=== PATIENT | female | born 1935 | race African-American/Black ===

== ENCOUNTER → 2017-03-28 | Outpatient (CLI) | payer OTHER ==
[2017-03-28 18:53] LABS: ALANINE AMINOTRANSFERASE 16 IU/L (0-55); ALBUMIN/GLOBULIN RATIO 0.4 (0.8-2.0); ALKALINE PHOSPHATASE 87 IU/L (40-150); ANION GAP 14.3 mmol/L (8-16); BLOOD UREA NITROGEN 38 mg/dL (7-26); BUN/CREATININE RATIO 51 (6-25); CARBON DIOXIDE 32 mmol/L (22-29); CHLORIDE 96 mmol/L (98-107); CREATININE, SERUM 0.74 mg/dL (0.57-1.11); EST GLOMERULAR FILTRATION RATE > 60 ML/MIN (60-); GLUCOSE 110 mg/dL (74-118); POTASSIUM 4.3 mmol/L (3.5-5.1); SODIUM 138 mmol/L (136-145)
[2017-03-28 19:02] LABS: BASOPHILS % 0.3 % (0.0-1.0); EOSINOPHILS % 0.1 % (0.0-6.0); HEMATOCRIT 24.6 % (34.2-44.1); LYMPHOCYTES # (AUTO) 1.9 (1.0-3.2); LYMPHOCYTES % 11.8 % (18.0-39.1); MEAN CORPUSCULAR HEMOGLOBIN 27.9 pg (28-32); MEAN CORPUSCULAR HGB CONC 30.9 g/dL (31-35); MEAN CORPUSCULAR VOLUME 90.4 fL (81-99); MONOCYTES % 6.1 % (4.4-11.3); NEUTROPHILS # (AUTO) 12.7 (2.1-6.9); NEUTROPHILS % 80.3 % (38.7-80.0); PLATELET COUNT 421 x10e3/uL (140-360); RED BLOOD COUNT 2.72 x10e6/uL (3.6-5.1); RED CELL DISTRIBUTION WIDTH 15.7 % (11.7-14.4)
[2017-03-28 19:05] LABS: HEMOGLOBIN 7.6 g/dL (12.0-16.0)
== END ==
LOC: NPA 11:30
DX: Z02.89 Encounter for other administrative examinations (principal)
CPT/HCPCS: 36415; 80053; 84134; 85025

== ENCOUNTER → 2017-04-07 | Outpatient (CLI) | payer OTHER ==
[~2017-04-07] MED LIST: ACETAMINOPHEN650 MG RC; AMIODARONE HCL200 MG PEG; APIXABAN; APIXABAN 5 MG PEG; ARTIFICIAL TEAR15 ML OP; CEFEPIME-D1 GM/50 ML IVP; CLONIDINE HCL0.1 MG PEG; CYMBALTA30 MG PEG; FUROSEMIDE40 MG PEG; GLUCAGON EMERGEN1 MG IM; LACTULOSE20 GM/30 M PEG; MULTIVITAMINS1 EAC6 PEG; NOVOLOG100 UNIT/1; POTASSIUM CHLO10 ME1 PEG; TYLENOL WITH C1 EACH PEG; VANCOMYCIN1 GM/250 M IV; ZOFRAN8 MG PEG
== END ==
LOC: NPA 12:30
PROVIDERS: ATTEND Internal Medicine
DX: Z02.9 Encounter for administrative examinations, unspecified (principal)
CPT/HCPCS: 36415

== ENCOUNTER 2017-04-10 19:42 | Inpatient (IN) | payer MEDICARE ==
[~2017-04-10] VITALS: Ht 172.7 cm; Wt 78.5 kg
[2017-04-10] MEDS ORDERED: PANTOPRAZOLE 40 MG 10ML VIAL IV STA (20:02)
[2017-04-10 20:25] LABS: BASOPHILS % 0.3 % (0.0-1.0); EOSINOPHILS % 0.3 % (0.0-6.0); HEMATOCRIT 25.7 % (34.2-44.1); LYMPHOCYTES # (AUTO) 1.4 (1.0-3.2); LYMPHOCYTES % 11.3 % (18.0-39.1); MEAN CORPUSCULAR HEMOGLOBIN 27.4 pg (28-32); MEAN CORPUSCULAR HGB CONC 30.7 g/dL (31-35); MEAN CORPUSCULAR VOLUME 89.2 fL (81-99); MONOCYTES # (AUTO) 0.6 (0.2-0.8); MONOCYTES % 5.1 % (4.4-11.3); NEUTROPHILS # (AUTO) 9.9 (2.1-6.9); NEUTROPHILS % 82.7 % (38.7-80.0); PLATELET COUNT 346 x10e3/uL (140-360); RED BLOOD COUNT 2.88 x10e6/uL (3.6-5.1); RED CELL DISTRIBUTION WIDTH 16.9 % (11.7-14.4)
[2017-04-10 20:28] LABS: HEMOGLOBIN 7.9 g/dL (12.0-16.0)
[2017-04-10 20:31] LABS: BILIRUBIN,URINE NEGATIVE (NEGATIVE); COLOR,URINE YELLOW (YELLOW); KETONES,URINE NEGATIVE (NEGATIVE); LEUKOCYTE ESTERASE ,URINE NEGATIVE (NEGATIVE); NITRITE,URINE NEGATIVE (NEGATIVE); PROTEIN,URINE DIPSTICK NEGATIVE (NEGATIVE); URINE UROBILINOGEN 0.2 mg/dL (0.2 - 1)
[2017-04-10 20:33] LABS: CLARITY,URINE CLEAR (CLEAR)
[2017-04-10 20:35] LABS: INR 1.61
[2017-04-10 20:36] LABS: PARTIAL THROMBOPLASTIN TIME 34.6 seconds (23.8-35.5)
[2017-04-10 20:45] LABS: ALANINE AMINOTRANSFERASE 15 IU/L (0-55); ALBUMIN 2.5 g/dL (3.5-5.0); ALBUMIN/GLOBULIN RATIO 0.5 (0.8-2.0); ALKALINE PHOSPHATASE 66 IU/L (40-150); ANION GAP 12.3 mmol/L (8-16); BACTERIA,URINE MANY /HPF; BLOOD UREA NITROGEN 28 mg/dL (7-26); BUN/CREATININE RATIO 47 (6-25); CALCIUM 8.9 mg/dL (8.4-10.2); CARBON DIOXIDE 32 mmol/L (22-29); CHLORIDE 93 mmol/L (98-107); CREATINE KINASE 22 IU/L (29-168); CREATININE, SERUM 0.59 mg/dL (0.57-1.11); EPITHELIAL CELLS,URINE FEW /LPF; EST GLOMERULAR FILTRATION RATE > 60 ML/MIN (60-); GLUCOSE 118 mg/dL (74-118); POTASSIUM 4.3 mmol/L (3.5-5.1); RBC,URINE 0-5 /HPF (0-5); SODIUM 133 mmol/L (136-145); WBC,URINE (MAN) 0-5 /HPF (0-5)
--- NOTE | 2017-04-10 21:00 | Diagnostic Imaging Report ---
EXAM: CHEST SINGLE (PORTABLE), AP 1 view ORDER DATE: 04/10/2017 7:50 PM Time stamp on exam: 2030 hours INDICATION: Vomiting up blood COMPARISON: None FINDINGS: LINES/TUBES: Tracheostomy tube. Partially visualized rounded density projects over the stomach, may be gastrostomy tube. LUNGS: Ill-defined opacity in the right upper lung. Bibasilar atelectasis. PLEURA: Questionable small bilateral pleural effusions. HEART AND MEDIASTINUM: Normal size and contour. BONES AND SOFT TISSUES: No acute findings. IMPRESSION: Ill-defined opacity in the right upper lung is difficult to characterize with overlying tubing. Questionable bilateral pleural effusions. An upright PA and lateral view of the chest is recommended when clinically feasible. Signed by: Dr. Shanon Monae M.D. on 04/10/2017 8:56 PM
--- OUTSIDE RECORDS SUMMARY | 2017-04-10 21:48 | XMS REPORT ---
Author Author [facility] Address Unknown Phone Unavailable Care Team Providers Care Branch Administrator Name Role Phone RYAN HAWKINS Unavailable Unavailable Problems This patient has no known problems. Allergies, Adverse Reactions, Alerts This patient has no known allergies or adverse reactions. Medications This patient has no known medications. Results Test Description Test Time Test Comments Text Results Atomic Results Result Comments CHEST SINGLE (PORTABLE) [place] [address] Patient Name: TRISH JAVIER MR #: [id number] : 1935 Age/Sex: 81/F Req #: [id number] Adm Physician: Ordered by: RYAN HAWKINS MD Report #: [id number] Location: ER Room/Bed: Procedure: [id number] DX/CHEST SINGLE (PORTABLE) Exam Date: Exam Time: REPORT STATUS: Signed EXAM: CHEST SINGLE (PORTABLE), AP 1 view ORDER DATE: 04/10/2017 7:50 PM Time stamp on exam: 2030 hours INDICATION : Vomiting up blood COMPARISON: None FINDINGS: LINES/TUBES: Tracheostomy tube. Partially visualized rounded density projects over the stomach, may be gastrostomy tube. LUNGS: Ill-defined opacity in the right upper lung. Bibasilar atelectasis. PLEURA: Questionable small bilateral pleural effusions. HEART AND MEDIASTINUM: Normal size and contour. BONES AND SOFT TISSUES: No acute findings. IMPRESSION: Ill-defined opacity in the right upper lung is difficult to characterize with overlying tubing. Questionable bilateral pleural effusions. An upright PA and lateral view of the chest is recommended when clinically feasible. Signed by : Dr. Michelle Negron M.D. on 04/10/2017 8:56 PM Dictated By: MICHELLE NEGRON MD 54 Transcribed By: MALIK on 04/10/172055 COPY TO: RYAN HAWKINS MD
[2017-04-10] MEDS: AMPICILLIN SOD/SULBACTAM 1.5GM 50 ML IV SCH (22:00)
[2017-04-10] MEDS ORDERED: LACTULOSE20 GM/30 M PEG (22:27)
[2017-04-10] MEDS ORDERED: APIXABAN 5 MG PEG (22:27)
[2017-04-10] MEDS ORDERED: GLUCAGON EMERGEN1 MG IM (22:27)
[2017-04-10] MEDS ORDERED: CEFEPIME-D1 GM/50 ML IVP (22:27)
[2017-04-10] MEDS ORDERED: AMIODARONE HCL200 MG PEG (22:27)
[2017-04-10] MEDS ORDERED: ACETAMINOPHEN650 MG RC (22:27)
[2017-04-10] MEDS ORDERED: APIXABAN (22:27)
[2017-04-10] MEDS ORDERED: MULTIVITAMINS1 EAC6 PEG (22:27)
[2017-04-10] MEDS ORDERED: ZOFRAN8 MG PEG (22:27)
[2017-04-10] MEDS ORDERED: VANCOMYCIN1 GM/250 M IV (22:27)
[2017-04-10] MEDS ORDERED: CLONIDINE HCL0.1 MG PEG (22:27)
[2017-04-10] MEDS ORDERED: POTASSIUM CHLO10 ME1 PEG (22:27)
[2017-04-10] MEDS ORDERED: TYLENOL WITH C1 EACH PEG (22:27)
[2017-04-10] MEDS ORDERED: ARTIFICIAL TEAR15 ML OP (22:27)
[2017-04-10] MEDS ORDERED: CYMBALTA30 MG PEG (22:27)
[2017-04-10] MEDS ORDERED: FUROSEMIDE40 MG PEG (22:27)
[2017-04-10] MEDS ORDERED: NOVOLOG100 UNIT/1 (22:27)
[2017-04-10] MEDS ORDERED: HYDRALAZINE HCL 20 MG/ML VIAL IV ONE (23:30)
[2017-04-11] VITALS (71 sets, daily range): BP systolic 68–172; BP diastolic 35–107
[2017-04-11] MEDS ORDERED: DEXTROSE 50% SYRINGE 50 ML IV PRN
[2017-04-11 01:40] LABS: AMYLASE 58 U/L (25-125); LIPASE 29 U/L (8-78)
[2017-04-11] MEDS: PANTOPRAZOL 40MG/SOD CHL 0.9% 50 ML IV SCH ×7 (01:59→21:23)
[2017-04-11] MEDS: SODIUM CHLORIDE 0.9% 1000ML 1,000 ML IV SCH ×3 (02:00→17:34)
[2017-04-11] MEDS: MORPHINE SULFATE 2 MG/ML SYR IV PRN ×4 (02:45→20:21)
[2017-04-11] MEDS ORDERED: ONDANSETRON HCL INJ 2 MG/ML VIAL IV PRN (02:45)
[2017-04-11] MEDS: AMPICILLIN SOD/SULBACTAM 1.5GM 50 ML IV SCH ×4 (04:20→20:54)
[2017-04-11] MEDS: LORAZEPAM INJ 2 MG/ML VIAL IV PRN ×3 (05:05→20:55)
[2017-04-11 06:19] LABS: HEMATOCRIT 23.8 % (34.2-44.1)
[2017-04-11 06:30] LABS: HEMOGLOBIN 7.5 g/dL (12.0-16.0)
[2017-04-11] MEDS ORDERED: SODIUM CHLORIDE 0.9% 250ML 250 ML IV ONE (06:45)
[2017-04-11] MEDS: INSULIN REGULAR, HUMAN 100 UNIT/1 ML 3ML VIAL SQ SCH ×4 (07:30→20:58)
[2017-04-11] MEDS ORDERED: ACETAMINOPHEN/CODEINE 300MG - 30MG TAB PEG PRN (08:15)
[2017-04-11] MEDS ORDERED: MULTIVITAMINS/MINERALS TAB PEG SCH (09:00)
[2017-04-11] MEDS: LACTULOSE SYRUP 20 GM/30 ML UDC PEG SCH (09:30)
[2017-04-11] MEDS: AMIODARONE HCL 200 MG TAB PEG SCH (09:30)
[2017-04-11] MEDS: CLONIDINE HCL 0.1 MG TAB PEG SCH ×3 (09:30→20:54)
[2017-04-11] MEDS: MULTIVITAMINS 5 ML LIQUID PEG SCH (09:30)
[2017-04-11] MEDS: IPRATROPIUM BROMIDE 0.02% 2.5 ML NEB NEB SCH ×2 (13:00→19:26)
--- NOTE | 2017-04-11 13:08 | Consultation ---
DATE OF CONSULTATION: April 11, 2017 PULMONARY CONSULTATION Patient transferred from [facility]. She appears chronically ill. There are no old medical records except for medication list provided. She has a history of vomiting coffee-ground emesis. She has a history of chronic aphasia, hypertension, diabetes. She has a trach and a PEG. She is sedated at the moment. HOME MEDICATIONS: Included Tylenol, Codeine, cefepime, clonidine, amiodarone, Cymbalta, Eliquis, lactulose, Lasix, insulin, potassium, and Zoloft. PAST MEDICAL HISTORY: She has a history of dysphagia, anxiety, anemia, old stroke, aphasia, pneumonia related to aspiration, and muscle wasting according to old records. PHYSICAL EXAMINATION GENERAL: This is a frail black female. Tracheostomy is in place. She is sedated. She is ventilated. LUNGS: Bilateral rhonchi. HEART: Regular rhythm. ABDOMEN: PEG is in place. EXTREMITIES: There is a venous ulcer in the left ankle. IMPRESSION 1. Upper gastrointestinal bleed. 2. Old stroke. 3. Peripheral vascular disease. 4. Right upper lobe pneumonia. PLAN: We will await cultures. Continue empiric antibiotic therapy. GI evaluation is in progress. Hemoglobin was 7.5 on admission, white count 11.9. She has been on antibiotics. Temperature is 99.4. She is currently on Unasyn. Consider changing to meropenem if patient becomes febrile. Attempt to obtain old records from [facility]. Hold anticoagulation at this time. Thank you for this kind referral. Job#: [id number] PKU
[2017-04-11 14:52] LABS: HEMATOCRIT 27.5 % (34.2-44.1); HEMOGLOBIN 8.7 g/dL (12.0-16.0)
--- NOTE | 2017-04-11 16:44 | Consultation ---
DATE OF CONSULTATION: WOUND CONSULTATION Thank you, Dr. Roberts, for asking me to see this patient. HISTORY OF PRESENT ILLNESS: An 81-year-old female patient, admitted with gastrointestinal bleeding. Patient has pressure ulcer to the sacrum. She is bedbound. Wound consult was called. PAST MEDICAL HISTORY: Hypertension, diabetes, and dementia. PERSONAL HISTORY: No history of smoking, alcohol, or drugs. MEDICATIONS 1. NovoLog insulin. 2. Potassium. 3. Probiotic. 4. Vancomycin. PHYSICAL EXAMINATION VITAL SIGNS: Blood pressure 118/70, pulse 72. HEENT: Normal. NECK: No JVD. LUNGS: Bilateral air entry normal. ABDOMEN: Soft. Bowel sounds normal. LOWER EXTREMITIES: No edema. SKIN: Coccyx area, patient has stage 2 pressure ulcer with a deep tissue injury, measuring 3 x 3 cm. In the left medial leg, patient has chronic venous ulcer that measures 5 x 2 cm x 0.1 cm, 80% pink, 20% slough. Wound margin attached to base. Periwound is normal limit. ASSESSMENT: Left medial leg chronic venous ulcer. PLAN: Apply Hydrogel, 4 x 4, Kerlix, tape, and Mepilex to the coccyx. Thank you, Dr. Roberts, for asking me to see this patient. I will follow with you during the hospital course. Job#: [id number] RICHARD
[2017-04-11 20:40] LABS: HEMATOCRIT 28.6 % (34.2-44.1); HEMOGLOBIN 9.1 g/dL (12.0-16.0)
[2017-04-11] MEDS: DULOXETINE HCL 30 MG DELAYED RELEASE PEG SCH (20:54)
[2017-04-12] VITALS (99 sets, daily range): BP systolic 69–164; BP diastolic 36–110
[2017-04-12] MEDS: MORPHINE SULFATE 2 MG/ML SYR IV PRN ×4 (00:13→21:14)
[2017-04-12] MEDS: LORAZEPAM INJ 2 MG/ML VIAL IV PRN ×3 (02:45→21:13)
[2017-04-12 02:58] LABS: HEMATOCRIT 28.1 % (34.2-44.1); HEMOGLOBIN 8.9 g/dL (12.0-16.0)
[2017-04-12] MEDS: IPRATROPIUM BROMIDE 0.02% 2.5 ML NEB NEB SCH ×4 (03:00→19:07)
[2017-04-12] MEDS: PANTOPRAZOL 40MG/SOD CHL 0.9% 50 ML IV SCH ×4 (03:00→21:36)
[2017-04-12] MEDS: SODIUM CHLORIDE 0.9% 1000ML 1,000 ML IV SCH ×2 (03:39→15:13)
[2017-04-12] MEDS: AMPICILLIN SOD/SULBACTAM 1.5GM 50 ML IV SCH ×4 (03:39→21:39)
[2017-04-12 06:24] LABS: BASOPHILS % 0.5 % (0.0-1.0); EOSINOPHILS # (AUTO) 0.1 (0.0-0.4); EOSINOPHILS % 2.1 % (0.0-6.0); LYMPHOCYTES # (AUTO) 0.8 (1.0-3.2); LYMPHOCYTES % 12.2 % (18.0-39.1); MEAN CORPUSCULAR HEMOGLOBIN 28.7 pg (28-32); MEAN CORPUSCULAR HGB CONC 30.9 g/dL (31-35); MEAN CORPUSCULAR VOLUME 92.8 fL (81-99); MONOCYTES # (AUTO) 0.5 (0.2-0.8); MONOCYTES % 7.5 % (4.4-11.3); NEUTROPHILS # (AUTO) 4.8 (2.1-6.9); NEUTROPHILS % 77.4 % (38.7-80.0); PLATELET COUNT 256 x10e3/uL (140-360); RED BLOOD COUNT 2.37 x10e6/uL (3.6-5.1); RED CELL DISTRIBUTION WIDTH 16.7 % (11.7-14.4)
[2017-04-12 06:28] LABS: HEMOGLOBIN 6.8 g/dL (12.0-16.0)
--- NOTE | 2017-04-12 06:37 | Diagnostic Imaging Report ---
EXAM: CHEST SINGLE (PORTABLE), AP 1 view ORDER DATE: 04/12/2017 5:19 AM Time stamp on exam: 0558 hours INDICATION: Ventilated COMPARISON: AP view of the chest April 10, 2017 at 2030 hours FINDINGS: LINES/TUBES: Tracheostomy tube LUNGS: Hazy opacities bilateral lungs PLEURA: No effusions or pneumothorax. HEART AND MEDIASTINUM: Normal size and contour. BONES AND SOFT TISSUES: No acute findings. IMPRESSION: Indeterminate opacities bilaterally, not significantly changed. Signed by: Dr. Shanon Monae M.D. on 04/12/2017 6:34 AM
[2017-04-12] MEDS ORDERED: SODIUM CHLORIDE 0.9% 250ML 250 ML IV ONE (06:45)
[2017-04-12 06:52] LABS: ALANINE AMINOTRANSFERASE 10 IU/L (0-55); ALBUMIN 1.9 g/dL (3.5-5.0); ALBUMIN/GLOBULIN RATIO 0.5 (0.8-2.0); ALKALINE PHOSPHATASE 52 IU/L (40-150); ANION GAP 10.3 mmol/L (8-16); BLOOD UREA NITROGEN 17 mg/dL (7-26); BUN/CREATININE RATIO 36 (6-25); CALCIUM 7.1 mg/dL (8.4-10.2); CARBON DIOXIDE 24 mmol/L (22-29); CHLORIDE 107 mmol/L (98-107); CREATININE, SERUM 0.47 mg/dL (0.57-1.11); EST GLOMERULAR FILTRATION RATE > 60 ML/MIN (60-); GLUCOSE 67 mg/dL (74-118); SODIUM 138 mmol/L (136-145)
[2017-04-12 06:56] LABS: INR 1.41
[2017-04-12 06:57] LABS: PARTIAL THROMBOPLASTIN TIME 34.6 seconds (23.8-35.5)
[2017-04-12] MEDS: INSULIN REGULAR, HUMAN 100 UNIT/1 ML 3ML VIAL SQ SCH ×4 (07:30→21:00)
[2017-04-12 07:43] LABS: POTASSIUM 3.3 mmol/L (3.5-5.1)
[2017-04-12] MEDS ORDERED: PHYTONADIONE 10 MG/ML AMP IV ONE (08:15)
[2017-04-12] MEDS: ARTIFICIAL TEARS (OPTH) 15 ML BTL OP PRN (08:37)
[2017-04-12] MEDS ORDERED: PHYTONADIONE 10MG/ML 20 MG in SODIUM CHLORIDE 0.9% 50ML 50 ML IV ONE (09:00)
[2017-04-12] MEDS: CLONIDINE HCL 0.1 MG TAB PEG SCH ×3 (09:05→21:12)
[2017-04-12] MEDS: AMIODARONE HCL 200 MG TAB PEG SCH (09:18)
[2017-04-12] MEDS: MULTIVITAMINS 5 ML LIQUID PEG SCH (09:18)
[2017-04-12] MEDS: LACTULOSE SYRUP 20 GM/30 ML UDC PEG SCH (09:18)
[2017-04-12 14:10] LABS: HEMATOCRIT 30.6 % (34.2-44.1); HEMOGLOBIN 9.5 g/dL (12.0-16.0)
[2017-04-12] MEDS ORDERED: EPINEPHRINE HCL INJ 1 MG/ML AMP ONE (14:39)
--- NOTE | 2017-04-12 16:56 | Operative Report ---
DATE OF PROCEDURE: April 12, 2017 REFERRING PHYSICIAN: Dr. Dalia Wylie. PROCEDURE PERFORMED: Esophagogastroduodenoscopy. INDICATIONS FOR ESOPHAGOGASTRODUODENOSCOPY: Anemia, history of melena. Patient with chronic respiratory failure, on ventilator. MEDICATION: Patient was done under general endotracheal anesthesia. Please see anesthesiologist's note. PROCEDURE: With the patient in the supine position, flexible fiberoptic Olympus gastroscope was introduced into the esophagus under direct visualization without any difficulty. There was some patchy erythema noted in distal esophagus. The scope was then advanced with ease into the stomach and mucosa overlying the antrum and the body revealed some diffuse erythema but no ulcerations, no active bleeding were noted. The bumper of the G-tube was noted to be in good position. Pylorus appeared to be of normal contour and shape. Was intubated with ease and the scope was advanced all the way to the 2nd portion of the duodenum. The scope was then withdrawn slowly. Mucosa overlying the proximal 2nd portion and the duodenal bulb appeared to be within normal limits. The scope was then withdrawn back into the stomach and retroflexed. The mucosa overlying the fundus and cardia appeared to be within normal limits. The scope was then straightened out. Stomach was decompressed. The scope was subsequently withdrawn. Patient tolerated the procedure well. IMPRESSION: 1. Distal esophagitis, mild. 2. Gastritis, mild. 3. Gastric bumper noted to be in good position. PLAN: Findings on esophagogastroduodenoscopy do not explain the patient's anemia or blood loss. Discussed with the patient's daughter, wants her colon evaluated. Will discuss with attending. Job#: [id number] cc:DALIA WYLIE MD
[2017-04-12] MEDS ORDERED: LIDOCAINE HCL 2% LOCAL INJ 5 ML SDV VIAL INJ ONE (18:24)
[2017-04-12] MEDS ORDERED: PROPOFOL IV EMULSION 10 MG/ML 20 ML VIAL ONE (18:24)
[2017-04-12] MEDS ORDERED: EPHEDRINE SULFATE INJ 50 MG/10 ML SYR ONE (18:24)
[2017-04-12] MEDS ORDERED: FENTANYL CITRATE/PF 100MCG/2 ML INJ ONE (18:31)
[2017-04-12] MEDS: DULOXETINE HCL 30 MG DELAYED RELEASE PEG SCH (21:13)
[2017-04-12 21:37] LABS: HEMATOCRIT 35.2 % (34.2-44.1); HEMOGLOBIN 10.9 g/dL (12.0-16.0)
[2017-04-13] VITALS (40 sets, daily range): BP systolic 116–173; BP diastolic 64–112
[2017-04-13] MEDS: SODIUM CHLORIDE 0.9% 1000ML 1,000 ML IV SCH ×3 (00:43→20:35)
[2017-04-13] MEDS: PANTOPRAZOL 40MG/SOD CHL 0.9% 50 ML IV SCH ×5 (00:43→20:35)
[2017-04-13] MEDS: MORPHINE SULFATE 2 MG/ML SYR IV PRN ×2 (01:30→10:01)
[2017-04-13] MEDS: IPRATROPIUM BROMIDE 0.02% 2.5 ML NEB NEB SCH ×2 (03:15→07:44)
[2017-04-13] MEDS: AMPICILLIN SOD/SULBACTAM 1.5GM 50 ML IV SCH ×2 (04:00→09:55)
[2017-04-13 06:00] LABS: HEMATOCRIT 35.8 % (34.2-44.1); HEMOGLOBIN 11.4 g/dL (12.0-16.0)
[2017-04-13] MEDS: INSULIN REGULAR, HUMAN 100 UNIT/1 ML 3ML VIAL SQ SCH ×4 (07:30→21:50)
[2017-04-13] MEDS: AMIODARONE HCL 200 MG TAB PEG SCH (08:45)
[2017-04-13] MEDS: MULTIVITAMINS 5 ML LIQUID PEG SCH (08:45)
[2017-04-13] MEDS: CLONIDINE HCL 0.1 MG TAB PEG SCH ×3 (08:45→20:35)
[2017-04-13] MEDS: LACTULOSE SYRUP 20 GM/30 ML UDC PEG SCH (08:45)
[2017-04-13 11:53] LABS: ANION GAP 9.5 mmol/L (8-16); BLOOD UREA NITROGEN 18 mg/dL (7-26); BUN/CREATININE RATIO 31 (6-25); CALCIUM 8.3 mg/dL (8.4-10.2); CARBON DIOXIDE 25 mmol/L (22-29); CHLORIDE 106 mmol/L (98-107); CREATININE, SERUM 0.59 mg/dL (0.57-1.11); EST GLOMERULAR FILTRATION RATE > 60 ML/MIN (60-); GLUCOSE 96 mg/dL (74-118); POTASSIUM 3.5 mmol/L (3.5-5.1); SODIUM 137 mmol/L (136-145)
[2017-04-13] MEDS: ALBUTEROL/IPRATROPIUM 3 ML NEB NEB SCH ×2 (12:15→19:16)
[2017-04-13 13:08] LABS: HEMATOCRIT 33.2 % (34.2-44.1); HEMOGLOBIN 10.5 g/dL (12.0-16.0)
[2017-04-13] MEDS ORDERED: FUROSEMIDE INJ 10 MG/ML 4 ML VIAL IV ONE (13:30)
[2017-04-13] MEDS: LINEZOLID 600 MG/D5W 300ML 300 ML IV SCH (14:30)
[2017-04-13 18:49] LABS: HEMATOCRIT 32.8 % (34.2-44.1); HEMOGLOBIN 10.3 g/dL (12.0-16.0)
[2017-04-13] MEDS: ACETAMINOPHEN/CODEINE ELIX 120-12 MG/5 ML UDC PEG PRN (20:34)
[2017-04-13] MEDS: DULOXETINE HCL 30 MG DELAYED RELEASE PEG SCH (20:35)
[2017-04-14] VITALS (34 sets, daily range): BP systolic 102–211; BP diastolic 59–196
[2017-04-14] MEDS: MORPHINE SULFATE 2 MG/ML SYR IV PRN ×4 (00:40→22:39)
[2017-04-14] MEDS: PANTOPRAZOL 40MG/SOD CHL 0.9% 50 ML IV SCH ×6 (00:45→22:38)
[2017-04-14] MEDS: LINEZOLID 600 MG/D5W 300ML 300 ML IV SCH ×2 (01:11→14:22)
[2017-04-14] MEDS: ALBUTEROL/IPRATROPIUM 3 ML NEB NEB SCH ×4 (02:25→18:45)
[2017-04-14] MEDS: ACETAMINOPHEN/CODEINE ELIX 120-12 MG/5 ML UDC PEG PRN ×2 (03:16→19:58)
[2017-04-14] MEDS ORDERED: LISINOPRIL 10 MG TAB NG ONE (03:45)
[2017-04-14 05:38] LABS: BASOPHILS % 0.3 % (0.0-1.0); EOSINOPHILS # (AUTO) 0.3 (0.0-0.4); EOSINOPHILS % 4.1 % (0.0-6.0); HEMATOCRIT 36.4 % (34.2-44.1); HEMOGLOBIN 11.4 g/dL (12.0-16.0); LYMPHOCYTES % 13.9 % (18.0-39.1); MEAN CORPUSCULAR HEMOGLOBIN 27.3 pg (28-32); MEAN CORPUSCULAR HGB CONC 31.3 g/dL (31-35); MONOCYTES # (AUTO) 0.5 (0.2-0.8); MONOCYTES % 7.2 % (4.4-11.3); NEUTROPHILS # (AUTO) 5.6 (2.1-6.9); NEUTROPHILS % 74.2 % (38.7-80.0); PLATELET COUNT 256 x10e3/uL (140-360); RED CELL DISTRIBUTION WIDTH 18.6 % (11.7-14.4)
[2017-04-14 05:44] LABS: MEAN CORPUSCULAR VOLUME 87.1 fL (81-99); RED BLOOD COUNT 4.18 x10e6/uL (3.6-5.1)
[2017-04-14 05:47] LABS: ANION GAP 11.1 mmol/L (8-16); BLOOD UREA NITROGEN 16 mg/dL (7-26); BUN/CREATININE RATIO 29 (6-25); CALCIUM 8.4 mg/dL (8.4-10.2); CARBON DIOXIDE 26 mmol/L (22-29); CHLORIDE 98 mmol/L (98-107); CREATININE, SERUM 0.56 mg/dL (0.57-1.11); EST GLOMERULAR FILTRATION RATE > 60 ML/MIN (60-); GLUCOSE 93 mg/dL (74-118); POTASSIUM 4.1 mmol/L (3.5-5.1); SODIUM 131 mmol/L (136-145)
--- NOTE | 2017-04-14 06:31 | Diagnostic Imaging Report ---
EXAM: CHEST SINGLE (PORTABLE), AP 1 view ORDER DATE: 04/14/2017 4:47 AM Time stamp on exam: 0500 hours INDICATION: CHF COMPARISON: AP view of the chest April 12, 2017 FINDINGS: LINES/TUBES: Tracheostomy tube LUNGS: Worsening pulmonary edema and bibasilar atelectasis. PLEURA: Increase in small bilateral pleural effusions. HEART AND MEDIASTINUM: Stable mild cardiac enlargement. Nonspecific widening of the upper mediastinum. BONES AND SOFT TISSUES: No acute findings. IMPRESSION: Findings suggest worsening fluid overload with pulmonary edema and enlarging small bilateral pleural effusions. Opacity in the right upper lung could represent atelectasis or pneumonia. Nonspecific widening of the upper mediastinum. This may be positional or if there is clinical concern for aortic pathology, CTA of the chest is recommended. Signed by: Dr. Shanon Monae M.D. on 04/14/2017 6:28 AM
[2017-04-14] MEDS: INSULIN REGULAR, HUMAN 100 UNIT/1 ML 3ML VIAL SQ SCH ×4 (07:30→20:24)
--- NOTE | 2017-04-14 08:05 | Consultation ---
DATE OF CONSULTATION: REASON FOR CONSULTATION: UTI. This is an 81-year-old female who comes from the [facility]. She has a history of GI bleed, dysphagia, anxiety, anemia, old CVA, dementia, pneumonia with aspiration, and wasting. She came into the hospital with upper. GI bleed. The patient does not really provide any further information. The patient was admitted. She was seen by Dr. Valerio. The patient has stage 2 pressure decubitus ulcer with deep tissue injury about 3 x 3 cm. She also have on the left medial leg chronic venous stasis ulcer about 5 x 2 x 1 cm. The patient was seen by GI, Dr. Dharmesh Roberts, for distal esophagitis and gastritis. The patient does not provide any further information. She is currently in the ICU. LABS: White count is 6.17, hemoglobin 6.8. Sodium 137, potassium 3.5, creatinine 0.59. Her wound is showing MRSA. Her urine is showing VRE. Chest x-ray showed indeterminate opacities, bilateral. MEDICATIONS: She is on morphine, Unasyn, lactulose, Cymbalta, dextrose. PHYSICAL EXAMINATION GENERAL: She is currently comfortable and noncommunicative. VITALS: Stable. Afebrile. HEENT: She is not icteric. Normocephalic. NECK: Supple. No JVD. LYMPHATICS: No thyromegaly. CHEST: Few crackles bilateral coarse. HEART: S1 and S2. No murmur. ABDOMEN: Soft. Bowel sounds present. No tenderness. EXTREMITIES: No edema. The wound looked good. IMPRESSION 1. Vancomycin-resistant enterococcus urinary tract infection. 2. Recurrent aspiration pneumonia: Patient with currently with Staphylococcus aureus. 3. Dementia, probably vascular. 4. Upper gastrointestinal bleed, stable. 5. Status post esophagogastroduodenoscopy showing distal esophagitis and gastritis. 6. Anemia. RECOMMENDATIONS: I would discontinue Unasyn. Will add Zyvox. Check amylase, lipase and liver enzymes. Continue with wound care. Will follow with you. Job#: [id number] MARILYN
[2017-04-14] MEDS: LORAZEPAM INJ 2 MG/ML VIAL IV PRN ×2 (08:07→19:57)
[2017-04-14] MEDS: AMIODARONE HCL 200 MG TAB PEG SCH (08:49)
[2017-04-14] MEDS: MULTIVITAMINS 5 ML LIQUID PEG SCH (08:49)
[2017-04-14] MEDS: CLONIDINE HCL 0.1 MG TAB PEG SCH ×3 (08:49→19:56)
[2017-04-14] MEDS: LACTULOSE SYRUP 20 GM/30 ML UDC PEG SCH (08:49)
[2017-04-14] MEDS ORDERED: LISINOPRIL 10 MG TAB NG SCH (09:00)
[2017-04-14] MEDS ORDERED: FUROSEMIDE INJ 10 MG/ML 4 ML VIAL IV ONE (16:00)
[2017-04-14] MEDS: DULOXETINE HCL 30 MG DELAYED RELEASE PEG SCH (19:56)
[2017-04-14] MEDS: FUROSEMIDE INJ 10 MG/ML 4 ML VIAL IV SCH (19:56)
[2017-04-15] VITALS (77 sets, daily range): BP systolic 104–225; BP diastolic 65–157
[2017-04-15] MEDS ORDERED: LISINOPRIL 10 MG TAB PEG ONE (00:15)
[2017-04-15] MEDS: LINEZOLID 600 MG/D5W 300ML 300 ML IV SCH ×2 (00:26→14:00)
[2017-04-15] MEDS: ALBUTEROL/IPRATROPIUM 3 ML NEB NEB SCH ×4 (01:00→18:55)
[2017-04-15] MEDS: PANTOPRAZOL 40MG/SOD CHL 0.9% 50 ML IV SCH (02:31)
[2017-04-15] MEDS: LORAZEPAM INJ 2 MG/ML VIAL IV PRN (02:31)
[2017-04-15] MEDS: ACETAMINOPHEN/CODEINE ELIX 120-12 MG/5 ML UDC PEG PRN ×2 (02:32→09:56)
[2017-04-15] MEDS: HYDRALAZINE HCL 20 MG/ML VIAL IV PRN (03:05)
[2017-04-15 05:59] LABS: BASOPHILS % 0.3 % (0.0-1.0); EOSINOPHILS # (AUTO) 0.4 (0.0-0.4); EOSINOPHILS % 5.1 % (0.0-6.0); HEMATOCRIT 32.7 % (34.2-44.1); HEMOGLOBIN 10.5 g/dL (12.0-16.0); LYMPHOCYTES # (AUTO) 1.1 (1.0-3.2); LYMPHOCYTES % 14.9 % (18.0-39.1); MEAN CORPUSCULAR HEMOGLOBIN 27.6 pg (28-32); MEAN CORPUSCULAR HGB CONC 32.1 g/dL (31-35); MEAN CORPUSCULAR VOLUME 85.8 fL (81-99); MONOCYTES # (AUTO) 0.5 (0.2-0.8); MONOCYTES % 7.4 % (4.4-11.3); NEUTROPHILS # (AUTO) 5.1 (2.1-6.9); PLATELET COUNT 223 x10e3/uL (140-360); RED BLOOD COUNT 3.81 x10e6/uL (3.6-5.1); RED CELL DISTRIBUTION WIDTH 18.6 % (11.7-14.4)
[2017-04-15 06:19] LABS: ALANINE AMINOTRANSFERASE 12 IU/L (0-55); ALBUMIN 2.3 g/dL (3.5-5.0); ALBUMIN/GLOBULIN RATIO 0.5 (0.8-2.0); ALKALINE PHOSPHATASE 81 IU/L (40-150); ANION GAP 12.6 mmol/L (8-16); BLOOD UREA NITROGEN 21 mg/dL (7-26); BUN/CREATININE RATIO 33 (6-25); CALCIUM 8.5 mg/dL (8.4-10.2); CARBON DIOXIDE 30 mmol/L (22-29); CHLORIDE 96 mmol/L (98-107); CREATININE, SERUM 0.63 mg/dL (0.57-1.11); EST GLOMERULAR FILTRATION RATE > 60 ML/MIN (60-); GLUCOSE 111 mg/dL (74-118); POTASSIUM 3.6 mmol/L (3.5-5.1); SODIUM 135 mmol/L (136-145)
[2017-04-15] MEDS: INSULIN REGULAR, HUMAN 100 UNIT/1 ML 3ML VIAL SQ SCH ×4 (07:30→20:51)
[2017-04-15] MEDS: CLONIDINE HCL 0.1 MG TAB PEG SCH ×3 (09:00→20:42)
[2017-04-15] MEDS: PANTOPRAZOLE 40 MG 10ML VIAL IV SCH ×2 (09:00→17:00)
[2017-04-15] MEDS: LACTULOSE SYRUP 20 GM/30 ML UDC PEG SCH (09:00)
[2017-04-15] MEDS: AMIODARONE HCL 200 MG TAB PEG SCH (09:00)
[2017-04-15] MEDS: FUROSEMIDE INJ 10 MG/ML 4 ML VIAL IV SCH ×2 (09:00→20:42)
[2017-04-15] MEDS: FENTANYL 50 MCG/HR PATCH TOP SCH (09:45)
[2017-04-15] MEDS: LISINOPRIL 10 MG TAB NG SCH ×2 (09:52→17:00)
[2017-04-15] MEDS: MULTIVITAMINS 5 ML LIQUID PEG SCH (09:54)
[2017-04-15 12:22] LABS: HEMATOCRIT 34.1 % (34.2-44.1); HEMOGLOBIN 10.8 g/dL (12.0-16.0)
[2017-04-15] MEDS: MORPHINE SULFATE 2 MG/ML SYR IV PRN (16:09)
[2017-04-15] MEDS: DULOXETINE HCL 30 MG DELAYED RELEASE PEG SCH (20:42)
[2017-04-16] VITALS (39 sets, daily range): BP systolic 88–180; BP diastolic 55–110
[2017-04-16] MEDS: ALBUTEROL/IPRATROPIUM 3 ML NEB NEB SCH ×4 (02:05→19:00)
[2017-04-16] MEDS: LINEZOLID 600 MG/D5W 300ML 300 ML IV SCH ×2 (02:15→14:09)
[2017-04-16] MEDS: HYDRALAZINE HCL 20 MG/ML VIAL IV PRN (05:45)
[2017-04-16] MEDS: INSULIN REGULAR, HUMAN 100 UNIT/1 ML 3ML VIAL SQ SCH ×4 (07:30→21:00)
[2017-04-16] MEDS: PANTOPRAZOLE 40 MG 10ML VIAL IV SCH ×2 (09:03→16:32)
[2017-04-16] MEDS: FUROSEMIDE INJ 10 MG/ML 4 ML VIAL IV SCH ×2 (09:03→21:02)
[2017-04-16] MEDS: CLONIDINE HCL 0.1 MG TAB PEG SCH ×3 (09:04→21:02)
[2017-04-16] MEDS: MULTIVITAMINS 5 ML LIQUID PEG SCH (09:04)
[2017-04-16] MEDS: AMIODARONE HCL 200 MG TAB PEG SCH (09:04)
[2017-04-16] MEDS: LISINOPRIL 10 MG TAB NG SCH ×2 (09:04→16:33)
[2017-04-16] MEDS: LACTULOSE SYRUP 20 GM/30 ML UDC PEG SCH (09:04)
[2017-04-16 09:25] LABS: HEMOGLOBIN 10.7 g/dL (12.0-16.0)
--- NOTE | 2017-04-16 09:48 | Diagnostic Imaging Report ---
PROCEDURE: A single AP view of the chest. COMPARISON: Patients [facility], , CHEST SINGLE (PORTABLE), 04/14/2017, 5:00. INDICATIONS: VENT DEPENDENT TRACHEOSTOMY PATIENT FINDINGS: Lines/tubes: Tracheostomy tube is present. An NG tube is looped upon itself in the upper neck region, hypopharynx. Lungs: Slight improvement in the pulmonary edema. Pleura: Bilateral pleural effusions. Heart and mediastinum: The heart remains enlarged. Bones: No acute bony abnormality. Extensive joint space narrowing involving the right shoulder. IMPRESSION: 1. Slight improvement in the pulmonary edema. 2. Bilateral pleural effusions. 3. NG tube looped upon itself in the neck region. Cesar Byrd D.O. Dictated by: Cesar Byrd D.O. on 04/16/2017 at 9:57 Electronically approved by: Cesar Byrd D.O. on 04/16/2017 at 9:57
[2017-04-16] MEDS: ARTIFICIAL TEARS (OPTH) 15 ML BTL OP PRN (11:03)
[2017-04-16] MEDS: ACETAMINOPHEN/CODEINE ELIX 120-12 MG/5 ML UDC PEG PRN (14:50)
[2017-04-16 17:42] LABS: HEMOGLOBIN 11.7 g/dL (12.0-16.0)
[2017-04-16] MEDS: LORAZEPAM INJ 2 MG/ML VIAL IV PRN (20:55)
[2017-04-16] MEDS: DULOXETINE HCL 30 MG DELAYED RELEASE PEG SCH (21:02)
[2017-04-17] VITALS (41 sets, daily range): BP systolic 57–164; BP diastolic 31–103
[2017-04-17] MEDS: ALBUTEROL/IPRATROPIUM 3 ML NEB NEB SCH ×5 (00:15→23:15)
[2017-04-17] MEDS: LINEZOLID 600 MG/D5W 300ML 300 ML IV SCH ×2 (02:05→14:15)
[2017-04-17] MEDS: LORAZEPAM INJ 2 MG/ML VIAL IV PRN ×3 (03:30→23:59)
[2017-04-17] MEDS: INSULIN REGULAR, HUMAN 100 UNIT/1 ML 3ML VIAL SQ SCH ×4 (07:30→21:00)
--- NOTE | 2017-04-17 08:56 | Diagnostic Imaging Report ---
PROCEDURE: A single AP view of the chest. COMPARISON: Portable chest 04/15/2017. INDICATIONS: CHF/VENTILATED FINDINGS: Lines/tubes: Tracheostomy catheter is present with the tip projecting over the expected region of the trachea, positioned 5 cm from the talya. Lungs: Stable bilateral multifocal airspace opacities. Pleura: Small bilateral pleural effusions, right greater than left. No pneumothorax. Heart and mediastinum: The heart and the mediastinum are unremarkable. Bones: No acute bony abnormality. Degenerative changes of the thoracic spine. IMPRESSION: No change since previous examination. Dictated by: Jona Wray M.D. on 04/17/2017 at 9:06 Electronically approved by: Jona Wray M.D. on 04/17/2017 at 9:06
[2017-04-17 09:11] LABS: HEMATOCRIT 36.3 % (34.2-44.1); HEMOGLOBIN 11.5 g/dL (12.0-16.0)
[2017-04-17] MEDS: FUROSEMIDE INJ 10 MG/ML 4 ML VIAL IV SCH ×2 (09:47→21:01)
[2017-04-17] MEDS: MULTIVITAMINS 5 ML LIQUID PEG SCH (09:47)
[2017-04-17] MEDS: PANTOPRAZOLE 40 MG 10ML VIAL IV SCH ×2 (09:47→18:40)
[2017-04-17] MEDS: LACTULOSE SYRUP 20 GM/30 ML UDC PEG SCH (09:47)
[2017-04-17] MEDS: AMIODARONE HCL 200 MG TAB PEG SCH (09:47)
[2017-04-17] MEDS: ARTIFICIAL TEARS (OPTH) 15 ML BTL OP PRN (09:48)
[2017-04-17] MEDS: ACETAMINOPHEN/CODEINE ELIX 120-12 MG/5 ML UDC PEG PRN ×2 (09:51→23:00)
[2017-04-17] MEDS: LISINOPRIL 10 MG TAB NG SCH ×2 (10:09→18:40)
[2017-04-17] MEDS: CLONIDINE HCL 0.1 MG TAB PEG SCH ×3 (10:09→21:01)
[2017-04-17 17:29] LABS: HEMATOCRIT 36.9 % (34.2-44.1); HEMOGLOBIN 11.5 g/dL (12.0-16.0)
[2017-04-17] MEDS: DULOXETINE HCL 30 MG DELAYED RELEASE PEG SCH (21:01)
[2017-04-18] VITALS (42 sets, daily range): BP systolic 83–169; BP diastolic 57–112
[2017-04-18] MEDS: LINEZOLID 600 MG/D5W 300ML 300 ML IV SCH ×2 (01:56→13:43)
[2017-04-18] MEDS: ALBUTEROL/IPRATROPIUM 3 ML NEB NEB SCH ×3 (07:00→19:45)
[2017-04-18] MEDS: INSULIN REGULAR, HUMAN 100 UNIT/1 ML 3ML VIAL SQ SCH ×3 (07:30→16:45)
[2017-04-18] MEDS: FUROSEMIDE INJ 10 MG/ML 4 ML VIAL IV SCH ×2 (10:00→20:53)
[2017-04-18] MEDS: LISINOPRIL 10 MG TAB NG SCH ×2 (10:00→17:28)
[2017-04-18] MEDS: LACTULOSE SYRUP 20 GM/30 ML UDC PEG SCH (10:00)
[2017-04-18] MEDS: PANTOPRAZOLE 40 MG 10ML VIAL IV SCH ×2 (10:00→17:18)
[2017-04-18] MEDS: CLONIDINE HCL 0.1 MG TAB PEG SCH ×3 (10:00→20:53)
[2017-04-18] MEDS: MULTIVITAMINS 5 ML LIQUID PEG SCH (10:00)
[2017-04-18] MEDS: AMIODARONE HCL 200 MG TAB PEG SCH (10:00)
[2017-04-18] MEDS: FENTANYL 50 MCG/HR PATCH TOP SCH (10:45)
[2017-04-18 10:57] LABS: ANION GAP 12.5 mmol/L (8-16); BLOOD UREA NITROGEN 29 mg/dL (7-26); BUN/CREATININE RATIO 43 (6-25); CALCIUM 9.3 mg/dL (8.4-10.2); CARBON DIOXIDE 38 mmol/L (22-29); CHLORIDE 84 mmol/L (98-107); CREATININE, SERUM 0.67 mg/dL (0.57-1.11); EST GLOMERULAR FILTRATION RATE > 60 ML/MIN (60-); GLUCOSE 94 mg/dL (74-118); POTASSIUM 4.5 mmol/L (3.5-5.1); SODIUM 130 mmol/L (136-145)
--- NOTE | 2017-04-18 16:10 | Progress Note ---
DATE: SUBJECTIVE: Ms. Rahman remains in ICU. She seems likely better, more alert. Met with the family. Discussed with the family. PHYSICAL EXAMINATION GENERAL: Her physical examination is unchanged. She is nonverbal. VITAL SIGNS: Stable. No fever now. HEENT: Normocephalic. CHEST: Few rhonchi. COR: S1, S2. No murmur. ABDOMEN: Soft. EXTREMITIES: Very limited movement noted. LABORATORY DATA: Cultures reviewed. Urine showed VRE, urine showed MRSA. IMPRESSION: Status post cerebrovascular accident, dementia, noncommunicative, very prolonged stay in the hospital, vent dependent, upper gastrointestinal bleed, VRE colonization/urinary tract infection, recurrent aspiration pneumonia, dementia, venous stasis ulcers and wound. Discussed with the family. I think her prognosis is extremely grim overall, but she is getting better. She can easily get another recurrent aspiration pneumonia. Discussed with them DNR and perhaps may be comfort care. Continue with antibiotic to finish 14 days for the time being. Insurance turned down LTAC at the present time. Job#: [id number] VAS
[2017-04-18] MEDS: ACETAMINOPHEN/CODEINE ELIX 120-12 MG/5 ML UDC PEG PRN (17:50)
[2017-04-18] MEDS: DULOXETINE HCL 30 MG DELAYED RELEASE PEG SCH (20:53)
[2017-04-19] VITALS (48 sets, daily range): BP systolic 96–176; BP diastolic 65–121
[2017-04-19] MEDS: ALBUTEROL/IPRATROPIUM 3 ML NEB NEB SCH ×4 (00:45→19:32)
[2017-04-19] MEDS: LINEZOLID 600 MG/D5W 300ML 300 ML IV SCH ×2 (02:28→14:19)
[2017-04-19] MEDS: INSULIN REGULAR, HUMAN 100 UNIT/1 ML 3ML VIAL SQ SCH ×4 (06:00→17:46)
[2017-04-19 06:13] LABS: BASOPHILS % 0.4 % (0.0-1.0); EOSINOPHILS # (AUTO) 0.2 (0.0-0.4); EOSINOPHILS % 3.4 % (0.0-6.0); HEMOGLOBIN 12.3 g/dL (12.0-16.0); LYMPHOCYTES # (AUTO) 1.3 (1.0-3.2); LYMPHOCYTES % 18.8 % (18.0-39.1); MEAN CORPUSCULAR HEMOGLOBIN 27.2 pg (28-32); MEAN CORPUSCULAR HGB CONC 31.5 g/dL (31-35); MEAN CORPUSCULAR VOLUME 86.1 fL (81-99); MONOCYTES # (AUTO) 0.5 (0.2-0.8); MONOCYTES % 6.6 % (4.4-11.3); NEUTROPHILS # (AUTO) 4.9 (2.1-6.9); NEUTROPHILS % 70.5 % (38.7-80.0); PLATELET COUNT 225 x10e3/uL (140-360); RED BLOOD COUNT 4.53 x10e6/uL (3.6-5.1); RED CELL DISTRIBUTION WIDTH 17.2 % (11.7-14.4)
[2017-04-19 06:29] LABS: ANION GAP 12.1 mmol/L (8-16); BLOOD UREA NITROGEN 30 mg/dL (7-26); BUN/CREATININE RATIO 43 (6-25); CALCIUM 9.5 mg/dL (8.4-10.2); CARBON DIOXIDE 38 mmol/L (22-29); CHLORIDE 83 mmol/L (98-107); EST GLOMERULAR FILTRATION RATE > 60 ML/MIN (60-); GLUCOSE 129 mg/dL (74-118); MAGNESIUM 1.5 MG/DL (1.3-2.1); PHOSPHORUS 3.3 MG/DL (2.3-4.7); POTASSIUM 4.1 mmol/L (3.5-5.1); SODIUM 129 mmol/L (136-145)
[2017-04-19] MEDS: FUROSEMIDE INJ 10 MG/ML 4 ML VIAL IV SCH ×2 (09:20→21:38)
[2017-04-19] MEDS: PANTOPRAZOLE 40 MG 10ML VIAL IV SCH ×2 (09:20→17:40)
[2017-04-19] MEDS: LISINOPRIL 10 MG TAB NG SCH ×2 (09:20→17:41)
[2017-04-19] MEDS: AMIODARONE HCL 200 MG TAB PEG SCH (09:21)
[2017-04-19] MEDS: MULTIVITAMINS 5 ML LIQUID PEG SCH (09:21)
[2017-04-19] MEDS: CLONIDINE HCL 0.1 MG TAB PEG SCH ×3 (09:21→21:39)
[2017-04-19] MEDS: LACTULOSE SYRUP 20 GM/30 ML UDC PEG SCH (09:21)
[2017-04-19] MEDS ORDERED: BISACODYL 10 MG SUPP PR ONE (12:00)
[2017-04-19] MEDS: CEFEPIME HCL 1 GM VIAL IV SCH (12:16)
--- NOTE | 2017-04-19 12:31 | Diagnostic Imaging Report ---
Examination: Single AP view of the chest. COMPARISON: April 15, 2017 INDICATION: Upper GI bleed DISCUSSION: Lines/tubes: Tracheostomy tube Lungs: Prominent interstitial markings. Bilateral lower lung atelectasis. Right upper lobe opacity. Pleura: There is no pleural effusion or pneumothorax. Heart and mediastinum: The heart and the mediastinum are unremarkable. Bones and soft tissues: No acute bony abnormalities. IMPRESSION: Stable prominent interstitial markings in lower lung atelectasis. Decreased right upper lobe opacity/pneumonia. Signed by: Dr. Diogo Guo M.D. on 04/19/2017 12:27 PM
[2017-04-19] MEDS: DULOXETINE HCL 30 MG DELAYED RELEASE PEG SCH (21:39)
[2017-04-19] MEDS: ARTIFICIAL TEARS (OPTH) 15 ML BTL OP PRN (21:39)
[2017-04-20] VITALS (44 sets, daily range): BP systolic 66–191; BP diastolic 42–120
[2017-04-20] MEDS: CEFEPIME HCL 1 GM VIAL IV SCH ×2 (00:56→13:55)
[2017-04-20] MEDS: ALBUTEROL/IPRATROPIUM 3 ML NEB NEB SCH ×4 (01:55→20:45)
[2017-04-20] MEDS: LINEZOLID 600 MG/D5W 300ML 300 ML IV SCH ×2 (02:34→13:55)
[2017-04-20] MEDS: INSULIN REGULAR, HUMAN 100 UNIT/1 ML 3ML VIAL SQ SCH ×4 (06:00→18:00)
[2017-04-20] MEDS ORDERED: FUROSEMIDE INJ 10 MG/ML 10 ML VIAL IV ONE (07:30)
[2017-04-20] MEDS ORDERED: FUROSEMIDE INJ 100 MG in SODIUM CHLORIDE 0.9% 100 ML 90 ML IV SCH (07:30)
[2017-04-20 07:34] LABS: BASOPHILS % 0.5 % (0.0-1.0); EOSINOPHILS # (AUTO) 0.2 (0.0-0.4); EOSINOPHILS % 3.4 % (0.0-6.0); HEMATOCRIT 37.2 % (34.2-44.1); HEMOGLOBIN 11.8 g/dL (12.0-16.0); LYMPHOCYTES # (AUTO) 1.2 (1.0-3.2); LYMPHOCYTES % 18.3 % (18.0-39.1); MEAN CORPUSCULAR HEMOGLOBIN 27.1 pg (28-32); MEAN CORPUSCULAR HGB CONC 31.7 g/dL (31-35); MEAN CORPUSCULAR VOLUME 85.3 fL (81-99); MONOCYTES # (AUTO) 0.5 (0.2-0.8); MONOCYTES % 7.3 % (4.4-11.3); NEUTROPHILS # (AUTO) 4.5 (2.1-6.9); PLATELET COUNT 212 x10e3/uL (140-360); RED BLOOD COUNT 4.36 x10e6/uL (3.6-5.1); RED CELL DISTRIBUTION WIDTH 17.2 % (11.7-14.4)
[2017-04-20] MEDS: PANTOPRAZOLE 40 MG 10ML VIAL IV SCH ×2 (09:00→19:17)
[2017-04-20] MEDS: FUROSEMIDE INJ 10 MG/ML 4 ML VIAL IV SCH (09:00)
[2017-04-20 09:01] LABS: ANION GAP 14.9 mmol/L (8-16); BLOOD UREA NITROGEN 34 mg/dL (7-26); BUN/CREATININE RATIO 53 (6-25); CALCIUM 9.4 mg/dL (8.4-10.2); CARBON DIOXIDE 35 mmol/L (22-29); CHLORIDE 82 mmol/L (98-107); CREATININE, SERUM 0.64 mg/dL (0.57-1.11); EST GLOMERULAR FILTRATION RATE > 60 ML/MIN (60-); GLUCOSE 119 mg/dL (74-118); POTASSIUM 3.9 mmol/L (3.5-5.1); SODIUM 128 mmol/L (136-145)
[2017-04-20] MEDS: MULTIVITAMINS 5 ML LIQUID PEG SCH (09:01)
[2017-04-20] MEDS: AMIODARONE HCL 200 MG TAB PEG SCH (09:01)
[2017-04-20] MEDS: LACTULOSE SYRUP 20 GM/30 ML UDC PEG SCH (09:01)
[2017-04-20] MEDS: LISINOPRIL 10 MG TAB NG SCH ×2 (09:01→19:17)
[2017-04-20] MEDS: CLONIDINE HCL 0.1 MG TAB PEG SCH ×3 (09:27→22:02)
[2017-04-20] MEDS ORDERED: SODIUM CHLORIDE 0.9% 500ML 500 ML IV ONE (11:30)
[2017-04-20] MEDS ORDERED: DULOXETINE HCL 30 MG DELAYED RELEASE PEG SCH (21:00)
[2017-04-21] VITALS (26 sets, daily range): BP systolic 83–192; BP diastolic 48–176
[2017-04-21] MEDS: CEFEPIME HCL 1 GM VIAL IV SCH ×2 (01:15→12:35)
[2017-04-21] MEDS: HYDRALAZINE HCL 20 MG/ML VIAL IV PRN (01:20)
[2017-04-21] MEDS: ALBUTEROL/IPRATROPIUM 3 ML NEB NEB SCH ×3 (02:00→13:30)
[2017-04-21] MEDS: LINEZOLID 600 MG/D5W 300ML 300 ML IV SCH ×2 (03:44→03:47)
[2017-04-21] MEDS: INSULIN REGULAR, HUMAN 100 UNIT/1 ML 3ML VIAL SQ SCH ×3 (06:00→12:00)
[2017-04-21 06:11] LABS: BASOPHILS # (AUTO) 0.1 (0.0-0.1); BASOPHILS % 0.6 % (0.0-1.0); EOSINOPHILS # (AUTO) 0.1 (0.0-0.4); HEMOGLOBIN 10.3 g/dL (12.0-16.0); LYMPHOCYTES # (AUTO) 0.9 (1.0-3.2); LYMPHOCYTES % 11.9 % (18.0-39.1); MEAN CORPUSCULAR HEMOGLOBIN 26.6 pg (28-32); MEAN CORPUSCULAR HGB CONC 31.2 g/dL (31-35); MEAN CORPUSCULAR VOLUME 85.3 fL (81-99); MONOCYTES # (AUTO) 0.5 (0.2-0.8); MONOCYTES % 6.7 % (4.4-11.3); NEUTROPHILS # (AUTO) 6.2 (2.1-6.9); NEUTROPHILS % 79.4 % (38.7-80.0); PLATELET COUNT 193 x10e3/uL (140-360); RED BLOOD COUNT 3.87 x10e6/uL (3.6-5.1); RED CELL DISTRIBUTION WIDTH 17.2 % (11.7-14.4)
[2017-04-21 06:30] LABS: ANION GAP 14.3 mmol/L (8-16); BLOOD UREA NITROGEN 40 mg/dL (7-26); BUN/CREATININE RATIO 56 (6-25); CALCIUM 9.2 mg/dL (8.4-10.2); CARBON DIOXIDE 35 mmol/L (22-29); CHLORIDE 83 mmol/L (98-107); CREATININE, SERUM 0.72 mg/dL (0.57-1.11); EST GLOMERULAR FILTRATION RATE > 60 ML/MIN (60-); GLUCOSE 174 mg/dL (74-118); POTASSIUM 4.3 mmol/L (3.5-5.1); SODIUM 128 mmol/L (136-145)
[2017-04-21] MEDS: CLONIDINE HCL 0.1 MG TAB PEG SCH (09:00)
[2017-04-21] MEDS ORDERED: FUROSEMIDE INJ 10 MG/ML 4 ML VIAL IV SCH (09:00)
[2017-04-21] MEDS: AMIODARONE HCL 200 MG TAB PEG SCH (09:14)
[2017-04-21] MEDS: LACTULOSE SYRUP 20 GM/30 ML UDC PEG SCH (09:14)
[2017-04-21] MEDS: PANTOPRAZOLE 40 MG 10ML VIAL IV SCH ×2 (09:14→16:54)
[2017-04-21] MEDS: MULTIVITAMINS 5 ML LIQUID PEG SCH (09:14)
[2017-04-21] MEDS: LISINOPRIL 10 MG TAB NG SCH ×2 (09:14→16:54)
[2017-04-21] MEDS ORDERED: ACETAMINOPHEN/CODEINE ELIX 120-12 MG/5 ML UDC PEG PRN ×2 (09:15)
[2017-04-21] MEDS ORDERED: LORAZEPAM INJ 2 MG/ML VIAL IV ONE (16:45)
[2017-04-21] MEDS ORDERED: LORAZEPAM 0.5 MG TAB PEG ONE (16:45)
[2017-04-21] MEDS ORDERED: LINEZOLID 600 MG TAB PEG SCH (17:00)
== END 2017-04-21 17:56 | DRG 207 ==
LOC: ER 19:42 → ERHOLD 21:45 → ICU 23:43
PROC: 30233L1 Transfusion of Nonautologous Fresh Plasma into Peripheral Vein, Percutaneous Approach (ICD-10-PCS; 2017-04-10)
PROC: 5A1955Z Respiratory Ventilation, Greater than 96 Consecutive Hours (ICD-10-PCS; principal; 2017-04-11)
PROC: 30233N1 Transfusion of Nonautologous Red Blood Cells into Peripheral Vein, Percutaneous Approach (ICD-10-PCS; 2017-04-11)
PROC: 0DJ08ZZ Inspection of Upper Intestinal Tract, Via Natural or Artificial Opening Endoscopic (ICD-10-PCS; 2017-04-12)
DX: J69.0 Pneumonitis due to inhalation of food and vomit (principal); L89.152 Pressure ulcer of sacral region, stage 2; I50.9 Heart failure, unspecified; I69.354 Hemiplegia and hemiparesis following cerebral infarction affecting left non-dominant side; J96.20 Acute and chronic respiratory failure, unspecified whether with hypoxia or hypercapnia; K29.71 Gastritis, unspecified, with bleeding; Z93.0 Tracheostomy status; R13.10 Dysphagia, unspecified; N39.0 Urinary tract infection, site not specified; E87.1 Hypo-osmolality and hyponatremia; Z99.11 Dependence on respirator [ventilator] status; R47.01 Aphasia; L97.829 Non-pressure chronic ulcer of other part of left lower leg with unspecified severity; N30.90 Cystitis, unspecified without hematuria; B96.89 Other specified bacterial agents as the cause of diseases classified elsewhere; B95.2 Enterococcus as the cause of diseases classified elsewhere; Z16.21 Resistance to vancomycin; I73.9 Peripheral vascular disease, unspecified; Z93.1 Gastrostomy status; E11.9 Type 2 diabetes mellitus without complications; I10 Essential (primary) hypertension; Z74.01 Bed confinement status; Z79.4 Long term (current) use of insulin; I87.8 Other specified disorders of veins; K20.9 Esophagitis, unspecified; F01.50 Vascular dementia, unspecified severity, without behavioral disturbance, psychotic disturbance, mood disturbance, and anxiety; I87.2 Venous insufficiency (chronic) (peripheral); Z16.12 Extended spectrum beta lactamase (ESBL) resistance; B95.62 Methicillin resistant Staphylococcus aureus infection as the cause of diseases classified elsewhere; D50.0 Iron deficiency anemia secondary to blood loss (chronic); I69.320 Aphasia following cerebral infarction
CPT/HCPCS: 36415; 36430; 43235; 71045; 80048; 80053; 81001; 82150; 82270; 82550; 82553; 82948; 83605; 83690; 83735; 83880; 84100; 84484; 85014; 85018; 85025; 85610; 85730; 86850; 86900; 86920; 87040; 87070; 87071; 87086; 87186; 87205; 93005; 94002; 94003; 94640; 96361; 96365; 96367; 96372; 96375; 96376; J0171; J0295; J0360; J0692; J1940; J2001; J2020; J2060; J2270; J3430; J7030; J7040; J7050; P9016; P9017

== ENCOUNTER → 2017-04-28 | Outpatient (CLI) | payer OTHER ==
[2017-04-28 18:17] LABS: ANION GAP 17.6 mmol/L (8-16); CREATININE, SERUM 1.09 mg/dL (0.57-1.11); POTASSIUM 4.6 mmol/L (3.5-5.1)
[2017-04-28 18:27] LABS: BASOPHILS # (AUTO) 0.1 (0.0-0.1); BASOPHILS % 0.4 % (0.0-1.0); EOSINOPHILS # (AUTO) 0.2 (0.0-0.4); EOSINOPHILS % 1.1 % (0.0-6.0); HEMATOCRIT 31.6 % (34.2-44.1); HEMOGLOBIN 10.3 g/dL (12.0-16.0); LYMPHOCYTES # (AUTO) 2.1 (1.0-3.2); MEAN CORPUSCULAR HGB CONC 32.6 g/dL (31-35); MEAN CORPUSCULAR VOLUME 82.7 fL (81-99); MONOCYTES # (AUTO) 1.1 (0.2-0.8); MONOCYTES % 7.5 % (4.4-11.3); NEUTROPHILS # (AUTO) 10.6 (2.1-6.9); NEUTROPHILS % 75.3 % (38.7-80.0); PLATELET COUNT 507 x10e3/uL (140-360); RED BLOOD COUNT 3.82 x10e6/uL (3.6-5.1); RED CELL DISTRIBUTION WIDTH 16.3 % (11.7-14.4)
== END ==
LOC: NPA 12:00
DX: Z02.89 Encounter for other administrative examinations (principal)
CPT/HCPCS: 36415; 80048; 85025